=== PATIENT | female | born 1980 | race Caucasian/White ===

== ENCOUNTER 2016-09-02 11:54 | Emergency (ER) | payer OTHER ==
[~2016-09-02] VITALS: Ht 165.1 cm; Wt 222.3 kg
--- NOTE | ~2016-09-02 | EKG ---
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
[~2016-09-02 11:54] MED LIST: ACETAMINOPHEN-1 EAC1 PO; ACETAMINOPHEN325 M1 PO; AMOXICILLIN 50500 MG PO; APAP500; ATORVASTATIN CA40 MG PO; AUGMENTIN 875875 MG PO; BENADRYL25 MG PO; CIPRO500 MG PO; COLACE100 MG PO; CRESTOR20 MG PO; DIFLUCAN150 MG PO; ERYTHROMYCIN250 MG PO; FARXIGA10 MG PO; FLAGYL500 MG PO; FLEXERIL PO; HYDROCHLOROTH12.5 MG PO; HYDROCODONE-AP1 EAC6 PO; IBUPROFEN 200200 M1 PO; IBUPROFEN 600600 M1 PO; IBUPROFEN 800800 M1 PO; IRON PO; MEDROLDOSEPACK PO; METFORMIN HCL500 MG PO; MIRALAX17 GM PO; NORCO 5-325 TA1 EACH OR; NORCO 5-325 TA1 EACH PO; PENICILLIN V P500 MG PO; PREDNISONE 20 M20 MG PO; PRENATAL PO; PROCARDIA XL30 MG PO; TOPROL XL100 MG PO; TOPROL XL25 MG PO; TYLENOL325 MG PO; ULTRAM 50MG TAB50 MG PO; VALIUM5 MG PO; VICTOZA0.6 MG/0.1 SUBQ; XOPENEX 0.63 MG/3 M1 INH; ZOFRAN4 MG PO
[2016-09-02] MEDS ORDERED: LISINOPRIL10 MG PO (11:58)
[2016-09-02 12:44] LABS: ABSOLUTE NEUTROPHILS 6.8 thou/uL (1.4-8.2); BASOPHILS 0.7 % (0.0-2.0); EOSINOPHILS 1.4 % (0.0-3.0); HEMATOCRIT 34.6 % (37.0-47.0); HEMOGLOBIN 11.7 gm/dL (12.0-15.0); LYMPHOCYTES 30.8 % (24.0-44.0); MCH 29.3 pg (26.0-34.0); MCHC 33.7 % (28.0-37.0); MCV 86.8 fL (80.0-100.0); MONOCYTES 5.7 % (1.0-8.0); PLATELET COUNT 275 thou/uL (150-400); POLYS 61.4 % (36.0-66.0); RBC 3.98 mil/uL (4.20-5.00); RDW 13.6 % (10.5-14.5); WBC 11.1 thou/uL (4.0-11.0)
[2016-09-02 12:50] LABS: MANUAL DIFF NO
[2016-09-02 12:55] LABS: ANION GAP 8 mmol/L (7-16); BUN 16 mg/dL (7-18); CALCIUM 9.3 mg/dL (8.5-10.1); CHLORIDE 98 mmol/L (98-107); CO2 27 mmol/L (21-32); CREATININE 0.8 mg/dL (0.6-1.3); GLUCOSE 200 mg/dL (70-99); POTASSIUM 4.1 mmol/L (3.5-5.1); SODIUM 133 mmol/L (136-145); TROPONIN-I < 0.04 ng/mL (<0.04-0.07)
[2016-09-23] MEDS ORDERED: XANAX 0.25 MG0.25 MG PO (22:12)
== END 2016-09-02 13:33 | disposition home or self-care (01) ==
LOC: ER 11:54
PROVIDERS: Emergency Medicine
DX: I10 Essential (primary) hypertension (principal); J45.909 Unspecified asthma, uncomplicated; E66.9 Obesity, unspecified; E11.9 Type 2 diabetes mellitus without complications; E78.5 Hyperlipidemia, unspecified; Z91.013 Allergy to seafood; Z87.440 Personal history of urinary (tract) infections; Z98.890 Other specified postprocedural states; Z88.8 Allergy status to other drugs, medicaments and biological substances

== ENCOUNTER 2017-05-19 09:34 | Emergency (ER) | payer OTHER ==
[~2017-05-19] VITALS: Ht 165.1 cm; Wt 206.4 kg
--- NOTE | ~2017-05-19 | EKG ---
[address] [address] ELECTROCARDIOGRAM REPORT Name: GAETANO HUGO Room #: [facility]#: [id number] Admission: 05/19/17 Attend Phys: Discharge: 05/19/17 Date of : 76 Report #: [id number] THIS REPORT FOR: //name// 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
[~2017-05-19 09:34] MED LIST changes: +LISINOPRIL10 MG PO; +XANAX 0.25 MG0.25 MG PO
[2017-05-19 10:05] LABS: ABSOLUTE NEUTROPHILS 5.2 thou/uL (1.4-8.2); BASOPHILS 0.6 % (0.0-2.0); EOSINOPHILS 1.8 % (0.0-3.0); HEMATOCRIT 37.8 % (37.0-47.0); HEMOGLOBIN 12.8 gm/dL (12.0-15.0); LYMPHOCYTES 32.1 % (24.0-44.0); MCH 29.1 pg (26.0-34.0); MCHC 33.8 g/dL (28.0-37.0); MCV 86.2 fL (80.0-100.0); MONOCYTES 5.7 % (1.0-8.0); PLATELET COUNT 321 thou/uL (150-400); POLYS 59.8 % (36.0-66.0); RBC 4.39 mil/uL (4.20-5.00); RDW 13.7 % (10.5-14.5); WBC 8.7 thou/uL (4.0-11.0)
[2017-05-19 10:07] LABS: MANUAL DIFF NO
[2017-05-19 10:11] LABS: ANION GAP 9 mmol/L (7-16); BUN 15 mg/dL (7-18); CALCIUM 9.6 mg/dL (8.5-10.1); CHLORIDE 100 mmol/L (98-107); CO2 27 mmol/L (21-32); CREATININE 0.8 mg/dL (0.6-1.0); GLUCOSE 143 mg/dL (74-106); POTASSIUM 3.8 mmol/L (3.5-5.1); SODIUM 136 mmol/L (136-145)
[2017-05-19 10:20] LABS: TROPONIN-I < 0.04 ng/mL (<0.04-0.07)
[2017-05-19] MEDS ORDERED: HYDROXYZINE HCL10 M2 PO (11:01)
== END 2017-05-19 11:16 | disposition home or self-care (01) ==
LOC: ER 09:34
PROVIDERS: Physician Assistant
DX: R00.2 Palpitations (principal); F41.9 Anxiety disorder, unspecified; E78.5 Hyperlipidemia, unspecified; I10 Essential (primary) hypertension; J45.909 Unspecified asthma, uncomplicated; E11.9 Type 2 diabetes mellitus without complications

== ENCOUNTER 2019-03-09 22:30 | Emergency (ER) | payer OTHER ==
[~2019-03-09] VITALS: Ht 165.1 cm; Wt 204.1 kg
[~2019-03-09 22:30] MED LIST changes: +HYDROXYZINE HCL10 M2 PO
[2019-03-10 00:08] LABS: ABSOLUTE NEUTROPHILS 7.1 thou/uL (1.4-8.2); BASOPHILS 0.6 % (0.0-2.0); EOSINOPHILS 1.6 % (0.0-3.0); HEMATOCRIT 37.3 % (37.0-47.0); HEMOGLOBIN 12.5 gm/dL (12.0-15.0); LYMPHOCYTES 29.9 % (24.0-44.0); MCHC 33.6 g/dL (28.0-37.0); MCV 89.2 fL (80.0-100.0); MONOCYTES 6.3 % (1.0-8.0); PLATELET COUNT 282 thou/uL (150-400); POLYS 61.6 % (36.0-66.0); RBC 4.18 mil/uL (4.20-5.00); RDW 13.6 % (10.5-14.5); WBC 11.5 thou/uL (4.0-11.0)
[2019-03-10 00:17] LABS: ANION GAP 12 mmol/L (7-16); BUN 24 mg/dL (7-18); CALCIUM 9.6 mg/dL (8.5-10.1); CHLORIDE 98 mmol/L (98-107); CO2 23 mmol/L (21-32); GLUCOSE 93 mg/dL (74-106); SODIUM 133 mmol/L (136-145)
[2019-03-10 00:26] LABS: MAGNESIUM 1.7 mg/dL (1.8-2.4); TROPONIN-I <0.06 ng/mL (<0.06)
[2019-03-10 00:53] VITALS: BP 116/67
--- NOTE | 2019-03-10 08:48 | EKG ---
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 : 1980 Requested By: Darrell Desouza Order Number: [id number] MD: Ian Patrick Measurements Intervals [place] Rate: 87 P: 58 [place]: 155 QRS: 15 QRSD: 94 T: 28 QT: 380 QTc: 457 Interpretive Statements Sinus rhythm ST elev, probable normal early repol pattern Compared to ECG 05/19/2017 09:44:15 No significant change was found Electronically Signed On 03-10-2019 8:48:33 CDT by Ian Patrick [email or web address] ��������������������������������������������� <ELECTRONICALLY SIGNED> ���������������������������������������� By: Ian Patrick MD, [facility] ��������������������������������������������� 03/10/19 0848 D: 07/2339 39 Ian Patrick MD, FACC /EPI
== END 2019-03-10 00:58 | disposition home or self-care (01) ==
LOC: ER 22:30
PROVIDERS: Emergency Medicine
DX: R00.2 Palpitations (principal); I10 Essential (primary) hypertension; E11.9 Type 2 diabetes mellitus without complications; J45.909 Unspecified asthma, uncomplicated; E78.5 Hyperlipidemia, unspecified; E66.9 Obesity, unspecified; Z98.890 Other specified postprocedural states; Z91.013 Allergy to seafood; Z88.8 Allergy status to other drugs, medicaments and biological substances; Z68.45 Body mass index [BMI] 70 or greater, adult

== ENCOUNTER 2020-07-24 09:34 | Emergency (ER) | payer OTHER ==
[~2020-07-24] VITALS: Ht 165.1 cm; Wt 222.3 kg
[2020-07-24] MEDS ORDERED: TOPROL XL25 MG PO (09:46)
[2020-07-24] MEDS ORDERED: LISINOPRIL20 MG PO (09:46)
[2020-07-24] MEDS ORDERED: OZEMPIC0.25 MG/0. SUBQ (09:47)
[2020-07-24 10:51] LABS: ABSOLUTE NEUTROPHILS 5.6 thou/uL (1.4-8.2); BASOPHILS 0.7 % (0.0-2.0); EOSINOPHILS 1.8 % (0.0-3.0); HEMATOCRIT 37.9 % (37.0-47.0); HEMOGLOBIN 12.7 gm/dL (12.0-15.0); LYMPHOCYTES 30.1 % (24.0-44.0); MCH 30.1 pg (26.0-34.0); MCHC 33.4 g/dL (28.0-37.0); MCV 90.1 fL (80.0-100.0); MONOCYTES 5.9 % (1.0-8.0); PLATELET COUNT 300 thou/uL (150-400); POLYS 61.5 % (36.0-66.0); RBC 4.21 mil/uL (4.20-5.00); RDW 13.5 % (10.5-14.5); WBC 9.1 thou/uL (4.0-11.0)
[2020-07-24 11:11] LABS: ANION GAP 9 mmol/L (7-16); BUN 18 mg/dL (7-18); CALCIUM 9.8 mg/dL (8.5-10.1); CHLORIDE 101 mmol/L (98-107); CO2 28 mmol/L (21-32); CREATININE 0.9 mg/dL (0.6-1.0); GLUCOSE 207 mg/dL (74-106); POTASSIUM 4.2 mmol/L (3.5-5.1); SODIUM 138 mmol/L (136-145)
[2020-07-24 11:15] LABS: MAGNESIUM 1.8 mg/dL (1.8-2.4); TROPONIN-I <0.06 ng/mL (<0.06)
[2020-07-24 11:43] VITALS: BP 179/83
--- NOTE | 2020-07-24 15:32 | EKG ---
[facility] [address] [place] [address] ELECTROCARDIOGRAM REPORT Name: GAETANO HUGO Room #: [facility]#: [id number] Admission: 07/24/20 Attend Phys: Discharge: 07/24/20 Date of : 76 Report #: [id number] <ELECTRONICALLY SIGNED> By: Alfonzo Jaffe MD, FACC 07/24/20 1532 0944 0944 Aflonzo Jaffe MD, FACC /EPI
== END 2020-07-24 11:45 | disposition home or self-care (01) ==
LOC: ER 09:34
PROVIDERS: Emergency Medicine
DX: R00.2 Palpitations (principal); I10 Essential (primary) hypertension; E78.5 Hyperlipidemia, unspecified; E11.9 Type 2 diabetes mellitus without complications; J45.909 Unspecified asthma, uncomplicated; Z79.899 Other long term (current) drug therapy; Z88.8 Allergy status to other drugs, medicaments and biological substances; Z91.013 Allergy to seafood

== ENCOUNTER 2020-09-27 08:01 | Observation (INO) | payer OTHER ==
[~2020-09-27] VITALS: Ht 165.1 cm; Wt 219.9 kg
[~2020-09-27 08:01] MED LIST changes: +LISINOPRIL20 MG PO; +OZEMPIC0.25 MG/0. SUBQ
[2020-09-27 08:13] VITALS: BP 130/73
[2020-09-27] MEDS ORDERED: KLONOPIN0.5 MG PO (08:18)
[2020-09-27] MEDS ORDERED: LEXAPRO 10 MG T10 M2 PO (08:18)
[2020-09-27] MEDS ORDERED: CRESTOR20 MG PO (08:19)
[2020-09-27 08:44] LABS: ABSOLUTE NEUTROPHILS 6.2 thou/uL (1.4-8.2); BASOPHILS 0.9 % (0.0-2.0); EOSINOPHILS 1.8 % (0.0-3.0); HEMOGLOBIN 12.4 gm/dL (12.0-15.0); LYMPHOCYTES 25.3 % (24.0-44.0); MCH 30.1 pg (26.0-34.0); MCHC 33.5 g/dL (28.0-37.0); MCV 89.8 fL (80.0-100.0); MONOCYTES 5.8 % (1.0-8.0); PLATELET COUNT 320 thou/uL (150-400); POLYS 66.2 % (36.0-66.0); RBC 4.12 mil/uL (4.20-5.00); RDW 13.2 % (10.5-14.5); WBC 9.3 thou/uL (4.0-11.0)
[2020-09-27 08:51] LABS: ANION GAP 7 mmol/L (7-16); BUN 18 mg/dL (7-18); CALCIUM 9.9 mg/dL (8.5-10.1); CHLORIDE 98 mmol/L (98-107); CO2 30 mmol/L (21-32); CREATININE 0.9 mg/dL (0.6-1.0); GLUCOSE 230 mg/dL (74-106); POTASSIUM 4.3 mmol/L (3.5-5.1); SODIUM 135 mmol/L (136-145)
[2020-09-27 09:01] LABS: MAGNESIUM 1.8 mg/dL (1.8-2.4); TROPONIN-I <0.06 ng/mL (<0.06)
--- NOTE | 2020-09-27 09:31 | EKG ---
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
[2020-09-27 11:57] LABS: APTT 25.1 Seconds (24.5-32.8); PROTIME 10.7 Seconds (9.3-11.4)
--- NOTE | 2020-09-27 12:23 | NUR ---
ECHO IN ROOM FOR BEDSIDE ECHO
[2020-09-27 12:25] LABS: CHOLESTEROL 404 mg/dL (<200); HDL CHOLESTEROL 53 mg/dL (>40); LDL CHOLESTEROL 321 mg/dL (<100); TC:HDL 7.6 Ratio (Not establshd); TRIGLYCERIDE 152 mg/dL (<150); VLDL 30 mg/dL (<40)
--- NOTE | 2020-09-27 13:16 | 2DMMODE ---
[facility] [place] [address] 2 D/M-MODE ECHOCARDIOGRAM Name: GAETANO HUGO Room #: 170-5 ADM IN [facility]#: [id number] Admission: 09/27/20 Attend Phys: Alejandro Gordillo MD Discharge: Date of : 76 Report #: [id number] THIS REPORT FOR: cc: Ilan Cortes MD, Ammar MD Lundgren,Ian Thakur MD [facility] WITH [facility] ~ APPROVED REPORT Study performed: 09/27/2020 12:10:07 EXAM: Comprehensive 2D, Doppler, and color-flow Echocardiogram Patient Location: In-Patient Room #: ER-5 Status: routine BSA: 2.87 HR: 80 bpm BP: 130/73 mmHg Rhythm: NSR Other Information Study Quality: Adequate Technically limited study due to body habitus. Risk Factors: Cardiac Risk Factors: HTN, Hyperlipidemia Indications Palpitations Hypertension/HDD 2D Dimensions IVSd: 14.24 (7-11mm) LVOT Diam: 20.25 (18-24mm) LVDd: 33.72 mm PWd: 12.21 (7-11mm) LVDs: 14.65 (25-40mm) Left Atrium: 40.48 (27-40mm) Aortic Root: 19.96 mm Volumes Left Atrial Volume (Systole) Single Plane 4CH: 25.53 mL Single Plane 2CH: 28.53 mL LA ESV Index: 10.03 mL/m2 [facility] [address] [place] [address] 2 D/M-MODE ECHOCARDIOGRAM Name: GAETANO HUGO Room #: 170-5 ADM IN .R.#: [id number] Admission: 09/27/20 Attend Phys: Bernie Ornelas Discharge: Date of : 76 Report #: [id number] Aortic Valve AoV Peak Osmany.: 2.42 m/s AO Peak Gr.: 23.47 mmHg LVOT Max P.70 mmHg AO Mean Gr.: 12.31 mmHg LVOT Mean P.47 mmHg AO V2 Mean: 1.60 m/s LVOT Max V: 1.19 m/s AO V2 VTI: 48.68 cm LVOT Mean V: 0.85 m/s PAN (VTI): 2.17 cm2 LVOT V1 VTI: 32.83 cm PAN Vmax: 1.59 cm2 SV (LVOT): 105.74 mL Mitral Valve MV Peak Gr.: 4.92 mmHg MV Mean Gr.: 2.58 mmHg E/A Ratio: 1.1 MV Decel. Time: 4890.13 ms MV E Max Osmany.: 0.81 m/s MV A Osmany.: 0.72 m/s MV Max Osmany.: 1.11 m/s MV Mean Osmany.: 0.77 m/s MV VTI: 426.68 mm MVA VTI: 247.81 mm2 MV PHT: 1418.14 ms IVRT: 78.43 ms Pulmonary Valve PV Peak Osmany.: 1.52 m/s PV Peak Gr.: 9.18 mmHg Pulmonary Vein P Vein S: 0.40 m/s P Vein A: 0.30 m/s P Vein D: 0.42 m/s P Vein A Dur.: 87.7 msec P Vein S/D Ratio: 0.95 Tricuspid Valve TR Peak Osmany.: 2.89 m/s TR Peak Gr.: 33.46 mmHg Left Ventricle The left ventricle is normal size. Regional wall motion is not well visualized. Mild concentric left ventricular hypertrophy. The left ventricular systolic function is normal. LVEF is 55-60%. Right Ventricle The right ventricle is normal size. The right ventricular systolic function is normal. Atria The left atrium size is normal. The right atrium size is [facility] [address] [place] [address] 2 D/M-MODE ECHOCARDIOGRAM Name: GAETANO HUGO Room #: 170-5 [facility]#: [id number] Admission: 09/27/20 Attend Phys: Bernie Ornelas Discharge: Date of : 76 Report #: [id number] normal. Aortic Valve The aortic valve is not visualized. Mild increase in transaortic velocities (Peak 23mmHg, mean 12mmHg) Mitral Valve The mitral valve is grossly normal. Trace mitral valve regurgitation No evidence of mitral valve stenosis. Tricuspid Valve The tricuspid valve is normal in structure. Mild tricuspid regurgitation. Pulmonic Valve Pulmonic valve is not well visualized. Great Vessels The aortic root is normal in size. IVC is normal in size and collapses >50% with inspiration. Pericardium There is no pericardial effusion. <Conclusion> Very limited study The left ventricular systolic function is normal. Regional wall motion is not well visualized. LVEF is 55-60%. The aortic valve is not visualized. Mild increase in transaortic velocities (Peak 23mmHg, mean 12mmHg) The mitral valve is grossly normal. Trace mitral valve regurgitation Pulmonary artery pressure could not be reliably ascertained There is no pericardial effusion. <ELECTRONICALLY SIGNED> By: Ian Patrick MD, FACC 09/27/20 1315 14 14 Ian Patrick MD, FACC /INF
[2020-09-27 13:20] VITALS: BP 132/49
[2020-09-27 14:31] VITALS: BP 132/49
--- NOTE | 2020-09-27 14:49 | 2DMMODE ---
[address] [address] 2 D/M-MODE ECHOCARDIOGRAM Name: GAETANO HUGO Room #: 170-5 ADM IN [facility].#: [id number] Admission: 09/27/20 Attend Phys: Alejandro Gordillo MD Discharge: Date of : 76 Report #: [id number] THIS REPORT FOR: cc: Ilan Cortes MD, Ammar MD Lammoglia, Francisco J. MD ~ APPROVED REPORT Study performed: 09/27/2020 14:27:47 EXAM: Limited 2D Echocardiogram Patient Location: ER Status: routine BSA: 2.87 HR: 81 bpm BP: 132/49 mmHg Rhythm: NSR Other Information Study Quality: Adequate Indications Limited echo with Optison added for better LV visualization. Palpitations, LV function. (Complete echo done earlier today) Echo Enhancing Agent Indication: Endocardial border delineation Agent(s) / Amount(s) Used: Optison 5 cc Left Ventricle The left ventricle is normal size. There is normal LV segmental wall motion. Mild concentric left ventricular hypertrophy. Left ventricular systolic function is normal. LVEF is 60-65%. Right Ventricle No significant right ventricular enlargement <Conclusion> The left ventricle is normal size. The left ventricle is normal size. Mild concentric left ventricular hypertrophy. Left ventricular systolic function is normal. [address] [address] 2 D/M-MODE ECHOCARDIOGRAM Name: GAETANO HUGO Room #: 170-5 ADM IN [facility].R.#: [id number] Admission: 09/27/20 Attend Phys: Bernie Ornelas Discharge: Date of : 76 Report #: [id number] LVEF is 60-65%. No significant right ventricular enlargement <ELECTRONICALLY SIGNED> By: Gerardo Noonan MD 09/27/20 1448 47 47 Gerardo Noonan MD /INF
[2020-09-27 15:05] VITALS: BP 159/76
[2020-09-27] MEDS ORDERED: VIT D3 PO (15:14)
[2020-09-27] MEDS ORDERED: MAGNESIUM250 M1 (15:15)
[2020-09-27 17:41] LABS: FOLIC ACID 12.9 ng/mL (8.6-58.9)
[2020-09-27 18:00] LABS: ALBUMIN 3.7 g/dL (3.4-5.0); DIRECT BILIRUBIN < 0.1 mg/dL (<0.1-0.2); SGOT 44 U/L (15-37); SGPT 67 U/L (30-65); TOTAL BILIRUBIN 0.6 mg/dL (0.2-1.0); TOTAL PROTEIN 8.7 g/dL (6.4-8.2)
[2020-09-27 19:47] VITALS: BP 135/71
--- NOTE | 2020-09-27 20:21 | NUR ---
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 PT HAD ORDERS FOR UP AD [place] AND AMBULATE IN HALLWAYS. RN NOTICED PT'S HR INCREASED FROM 80'S NSR TO 130'S ST WHEN UP AMBULATING. PT DENIES SOB, DENIES AND CHEST PAIN, DENIES AND HEART PALPITATIONS THIS SHIFT. PT INSTRUCTED TO USE CALL LIGHT IF SHE DOES EXPERIENCE ANY PALPITATIONS, CHEST DISCOMFORT OR CHEST PAIN. PT AGREES TO CALL. PT UP IN ROOM, STEADY ON FEET. HOSPITALIST MADE AWARE OF INCREASE IN HR WHEN UP AMBULATING IN HALLS. HOSPITALIST STATED TO NOT HAVE PT WALKING HALLS IF HR REMAINS ELEVATED WHEN AMBULATING IN HALLWAYS. PASSED INFO TO NIGHT RN. PT DENIES ANXIETY AT THIS TIME. PT STATES SHE WILL LET NURSING KNOW IF SHE STARTS TO HAVE ANXIETY.
[2020-09-28 00:15] VITALS: BP 129/61
[2020-09-28 01:06] LABS: GLYCOHEMOGLOBIN (HGB A1C) 8.5 % (4.8-5.6)
[2020-09-28 03:50] LABS: ABSOLUTE NEUTROPHILS 5.2 thou/uL (1.4-8.2); BASOPHILS 0.6 % (0.0-2.0); EOSINOPHILS 2.5 % (0.0-3.0); HEMATOCRIT 35.3 % (37.0-47.0); HEMOGLOBIN 11.5 gm/dL (12.0-15.0); LYMPHOCYTES 34.4 % (24.0-44.0); MCH 29.5 pg (26.0-34.0); MCHC 32.5 g/dL (28.0-37.0); MCV 90.8 fL (80.0-100.0); MONOCYTES 7.1 % (1.0-8.0); PLATELET COUNT 323 thou/uL (150-400); POLYS 55.4 % (36.0-66.0); RBC 3.89 mil/uL (4.20-5.00); RDW 13.4 % (10.5-14.5); WBC 9.4 thou/uL (4.0-11.0)
[2020-09-28 04:00] VITALS: BP 124/62
[2020-09-28 04:36] LABS: ANION GAP 7 mmol/L (7-16); BUN 14 mg/dL (7-18); CALCIUM 9.3 mg/dL (8.5-10.1); CHLORIDE 100 mmol/L (98-107); CHOLESTEROL 357 mg/dL (<200); CO2 30 mmol/L (21-32); CREATININE 0.8 mg/dL (0.6-1.0); GLUCOSE 171 mg/dL (74-106); HDL CHOLESTEROL 41 mg/dL (>40); LDL CHOLESTEROL 280 mg/dL (<100); MAGNESIUM 1.8 mg/dL (1.8-2.4); POTASSIUM 3.7 mmol/L (3.5-5.1); SODIUM 137 mmol/L (136-145); TC:HDL 8.7 Ratio (Not establshd); TRIGLYCERIDE 181 mg/dL (<150); VLDL 36 mg/dL (<40)
[2020-09-28 04:38] LABS: SERUM ASSESSMENT Clear
--- NOTE | 2020-09-28 05:35 | NUR ---
RESTED QUIETLY MOST OF SHIFT. WORKING ON GOALS AND PLAN OF CARE FOR NOC. TELEMETRY SHOWS SR WITHOUT ECTOPY. DENIES COMPLAINTS OF PALPATATIONS THIS SHIFT OR CHEST PAIN. PROGRESSING SLOWLY TOWARDS DISCHARGE GOALS. CONTINUE TO ASSES CLOSELY.
--- NOTE | 2020-09-28 07:09 | EKG ---
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[place] : 1980 Requested By: Migdalia Ferrell Order Number: [id number] MD: Alfonzo Jaffe Measurements Intervals [place] Rate: 85 P: 58 AR: 151 QRS: 19 QRSD: 89 T: 37 QT: 386 QTc: 459 Interpretive Statements Sinus rhythm Probable left atrial enlargement Abnormal R-wave progression, late transition J Point elev, probable normal early repol pattern Compared to ECG 09/27/2020 08:32:35 ST (T wave) deviation now present Electronically Signed On 09-28-2020 7:09:47 BLOW MOLD MACHINE OPERATOR by Alfonzo Jaffe [email or web address] <ELECTRONICALLY SIGNED> By: Alfonzo Jaffe MD, FACC 09/28/20708 5 5 Alfonzo Jaffe MD, [facility] /EPI
[2020-09-28 07:29] VITALS: BP 138/67
[2020-09-28] MEDS ORDERED: METOPROLOL SUCC50 MG PO (07:56)
[2020-09-28] MEDS ORDERED: AMOXICILLIN 50500 M1 PO (08:11)
--- NOTE | 2020-09-28 10:29 | NUR ---
RECEIVED PT'S CARE AROUND 0720; PT. ALERT; SR ON THE MONITOR; DURING AM ASSESSMENT PT. AOX4; NO C/O PAIN; AM MEDICATIONS GIVEN; PER DR. MOSLEY DOES NOT NEED VQ STUDY; CANCEL IT; EDUCATED ABOUT D/C PROCESS; ST. UNDERSTANDING; EDUCATED ABOUT FALL PRECAUTIONS; ST. UNDERSTANDING; ASSESSMENT CHARGED; FOLLOWING POC; WILL WORK ON D/C ORDERS;
[2020-09-28 10:31] VITALS: BP 138/67
== END 2020-09-28 11:20 | disposition home or self-care (01) ==
LOC: ER 08:01 → 2N 10:38 → EROBS 10:38 → 2N 10:38
PROVIDERS: Emergency Medicine; Nurse Practitioner; Nurse Practitioner Adult Health; ADMIT Hospitalist; ATTEND Hospitalist
DX: R00.2 Palpitations (principal); I10 Essential (primary) hypertension; E11.9 Type 2 diabetes mellitus without complications; E78.00 Pure hypercholesterolemia, unspecified; E66.01 Morbid (severe) obesity due to excess calories; F41.9 Anxiety disorder, unspecified; R00.0 Tachycardia, unspecified; D72.829 Elevated white blood cell count, unspecified; E78.5 Hyperlipidemia, unspecified; F32.9 Major depressive disorder, single episode, unspecified; R07.89 Other chest pain; Z82.49 Family history of ischemic heart disease and other diseases of the circulatory system
CPT/HCPCS: 10081

== ENCOUNTER 2021-03-15 16:25 | Emergency (ER) | payer OTHER ==
[~2021-03-15] VITALS: Ht 165.1 cm; Wt 176.9 kg
[~2021-03-15 16:25] MED LIST changes: +AMOXICILLIN 50500 M1 PO; +KLONOPIN0.5 MG PO; +LEXAPRO 10 MG T10 M2 PO; +MAGNESIUM250 M1; +METOPROLOL SUCC50 MG PO; +VIT D3 PO
[2021-03-15 19:45] VITALS: BP 99/60
== END 2021-03-15 19:46 | disposition left against medical advice (07) ==
LOC: ER 16:25
DX: S70.12XA Contusion of left thigh, initial encounter (principal); Z20.822 Contact with and (suspected) exposure to COVID-19; S70.11XA Contusion of right thigh, initial encounter; R05 Cough; R09.81 Nasal congestion; M79.10 Myalgia, unspecified site; J45.909 Unspecified asthma, uncomplicated; E66.9 Obesity, unspecified; E11.9 Type 2 diabetes mellitus without complications; E78.5 Hyperlipidemia, unspecified; I10 Essential (primary) hypertension; Z79.899 Other long term (current) drug therapy; Z88.8 Allergy status to other drugs, medicaments and biological substances; Z98.890 Other specified postprocedural states; Z91.013 Allergy to seafood; X58.XXXA Exposure to other specified factors, initial encounter; Y93.89 Activity, other specified; Y92.89 Other specified places as the place of occurrence of the external cause; Y99.8 Other external cause status